=== PATIENT | male | born 1990 | race Caucasian/White ===

== ENCOUNTER → 2019-02-18 | Outpatient (CLI) | payer OTHER ==
--- NOTE | 2019-02-18 08:36 | CT ---
EXAMINATION TYPE: CT wrist LT wo con DATE OF EXAM: 02/18/2019 COMPARISON: None. HISTORY: Lt wrist fracture. CT DLP: 105.6 mGycm Automated exposure control for dose reduction was used. FINDINGS: Overlying cast material is present. There is acute minimally displaced oblique intra-articular fractu re through the ulnar styloid with 6 mm fracture fragment along the ulnar aspect. There is acute comminuted displaced intra-articular fracture through the distal radial metadiaphysis. There are multiple fracture fragments including anterior radial 1.1 cm fracture fragment along with a central 9 mm articulating surface fracture fragment and smaller dorsal and ulnar surface radial fra cture fragments. Carpal joint spaces are overall preserved. Overlying Soft tissue is unremarkable. IMPRESSION: Acute comminuted displaced intra-articular fracture distal radial meta-epiphysis as anne led above.
== END | disposition home or self-care (01) ==
LOC: RADCTMAIN 07:23
PROVIDERS: ATTEND Orthopaedic Surgery
DX: S52.572A Other intraarticular fracture of lower end of left radius, initial encounter for closed fracture (principal)

== ENCOUNTER 2019-02-21 11:17 | Day surgery (SDC) | payer OTHER ==
[2019-02-20 08:54] VITALS: BMI 27.8
[~2019-02-21 11:17] MED LIST: DEXAMETHASONE SOD PHOSPHATE 10 MG/ML 1 ML VIAL IV ONE; HYDROmorphone 0.5 MG/0.5 ML SYRINGE IVP PRN; LACTATED RINGERS 1,000 ML IV SCH; LIDOCAINE 1% 20 ML VIAL (10MG/ML) FOR IV START INTRADERMA PRN; MIDAZOLAM 2 MG/2 ML VIAL IV PRN; ONDANSETRON 4 MG/2 ML VIAL IVP ONE; fentaNYL (PF) 50 MCG/ML 2 ML AMP IVP PRN
[2019-02-21 11:40] VITALS: TEMP 98.2
[2019-02-21] MEDS ORDERED: MIDAZOLAM 2 MG/2 ML VIAL IV ONE (12:11)
[2019-02-21] MEDS ORDERED: fentaNYL (PF) 50 MCG/ML 2 ML AMP IV ONE (12:11)
--- NOTE | 2019-02-21 13:21 | P.ANPRN ---
Procedure Note - Anesthesia - Nerve Block Performed Left Infraclavicular Single Time Out Performed: Yes Date of Procedure: 02/21/19 Procedure Start Time: 12:10 Procedure Stop Time: 12:30 Location of Patient: PreOp Indication: Acute Post-Operative Pain, Requested by Surgeon Specifically requested for management of pain by DrKathy: Garry Sims Sedation Type: Sedate with meaningful contact maintained Preparation: Sterile Prep Position: Supine Catheter: None Needle Types: Pajunk Needle Gauge: 20 Ultrasound used to visualize needle placement: Yes Ultrasound used to observe medication spread: Yes Injectate: 0.5% Ropivacaine (see comment for volume) (30cc) Blood Aspirated: Yes Pain Paresthesia on Injection Noted: Yes Resistance on Injection: Normal Image Stored and Saved: Yes Events: Uneventful and Well Tolerated
[2019-02-21] MEDS ORDERED: MIDAZOLAM 2 MG/2 ML VIAL ONE (13:37)
[2019-02-21] MEDS ORDERED: fentaNYL (PF) 50 MCG/ML 2 ML AMP ONE (13:37)
[2019-02-21] MEDS ORDERED: PROPOFOL 10 MG/ML 20 ML VIAL IV ONE (13:37)
[2019-02-21] MEDS ORDERED: DEXAMETHASONE SOD PHOSPHATE 4 MG/ML 1 ML VIAL ONE (13:37)
[2019-02-21] MEDS ORDERED: ROPIVACAINE 5 MG/ML 30 ML VIAL ONE (13:37)
[2019-02-21] MEDS ORDERED: KETAMINE 10 MG/ML 20 ML VIAL ONE (13:37)
[2019-02-21] MEDS ORDERED: LIDOCAINE 1%-EPI 1:100,000 20 ML VIAL SQ ONE ×2 (14:08→14:47)
[2019-02-21] MEDS ORDERED: BUPIVACAINE (PF) 0.5% 30 ML VIAL SQ ONE ×2 (14:09→14:47)
--- NOTE | 2019-02-21 15:06 | FL ---
Fluoroscopy HISTORY: Fracture 1 minute 20 seconds fluoroscopy time supplied to the referring clinician. 6 intraoperative C-arm kallie ges document the procedure. See dictated report from .
--- NOTE | 2019-02-21 15:08 | XR ---
Limited wrist HISTORY: Fracture 6 intraoperative C-arm images document the procedure
[2019-02-21 15:25] VITALS: RESP 16
[2019-02-21 16:04] VITALS: BP 124/72; PULSE 73
--- NOTE | 2019-02-26 20:30 | P.OP ---
Date of Procedure: 02/21/19 Preoperative Diagnosis: Comminuted, intra-articular left distal radius fracture Postoperative Diagnosis: Comminuted, intra-articular left distal radius fracture Procedure(s) Performed: Closed reduction and percutaneous pinning of intra-articular left distal radius fracture (> 3 parts) Implants: 0.062 K wires (2), 0.054 K wire (1) Anesthesia: MAC, regional Surgeon: Garry Sims Estimated Blood Loss (ml): 1 Condition: stable Disposition: same day Indications for Procedure: The patient is a pleasant 29-year-old male who sustained an intra-articular fracture of his left distal radius after a fall from a ladder at work. Treatment options were discussed in the office and operative treatment was recommended. Risks and benefits were reviewed including (but not limited to) the risks of infection, bleeding, injury to tendons and neurovascular structures, malunion and possible need for additional surgery. He expressed understanding and wished to proceed with surgery. The procedure was initially scheduled earlier, but the patient opted to delay this until after [place]. In preop, the operative site was confirmed and marked. Consent forms were signed. Description of Procedure: The patient was administered a regional nerve block by the anesthesia team and then was brought to the operating suite. He was positioned supine with the operative limb on a hand table. Anesthesia and prophylactic IV antibiotics were administered. All bony prominences were well-padded. A tourniquet was placed on the left arm, which was then prepped and draped in standard, sterile fashion. A timeout was performed, confirming patient identifiers, the operative side, the site and the procedure to be performed: all team members were in agreement. The wrist was initially evaluated with intraoperative fluoroscopy. Radial height and inclination were well- maintained with nearly neutral volar tilt. There were no prominent articular incongruities. Passive flexion, extension and circumduction demonstrated a smooth articulation without crepitus. Dynamic examination with live fluoroscopy showed some motion of the fracture, particularly with axial load and flexion stress, but the fracture did not displace. Since the fracture was nearly 2 weeks out from the initial injury, the decision was made to forego formal open reduction in favor of percutaneous pin fixation. A 0.062 K wire was introduced percutaneous into the radial styloid, confirming the starting point on imaging. A combination of axial traction, radial deviation and palmar translation was applied to the fracture. While held in this position, the wire was advanced across the fracture site. A second wire was inserted in a similar fashion for additional stability. Preop CT scan demonstrated separate fragments of the volar and dorsal portions of radial column with a separate coronal sheer fragment of the sigmoid notch. A 0.054 K wire was introduced percutaneously into the radial styloid, slightly volar to midline, and advanced transversely to secure the volar fragment to the intermediate column/sigmoid notch fragment. Final x-rays were obtained. The wrist was then ranged under live fluoroscopy - no motion of the fracture fragments or fixation construct was appreciated. The wrist articulated smoothly in flexion, extension and rotation without crepitus or grinding. The pins were cut and covered with Jurgan balls. Sterile dressings were applied. The patient was placed in a long-arm sugartong plaster splint. All sponge, needle and instrument counts were correct at the end of the case. The patient tolerated the procedure well. He was awakened uneventfully and taken to the recovery room in stable condition.
== END 2019-02-21 16:01 | disposition home or self-care (01) ==
LOC: OR 11:17
PROVIDERS: ATTEND Orthopaedic Surgery
DX: S93.422A Sprain of deltoid ligament of left ankle, initial encounter (principal); S52.572A Other intraarticular fracture of lower end of left radius, initial encounter for closed fracture; S83.402A Sprain of unspecified collateral ligament of left knee, initial encounter; S52.612A Displaced fracture of left ulna styloid process, initial encounter for closed fracture; J45.909 Unspecified asthma, uncomplicated; Z79.51 Long term (current) use of inhaled steroids; Z88.6 Allergy status to analgesic agent; Z79.899 Other long term (current) drug therapy; Z79.1 Long term (current) use of non-steroidal anti-inflammatories (NSAID); W11.XXXA Fall on and from ladder, initial encounter; Y99.0 Civilian activity done for income or pay; Y92.69 Other specified industrial and construction area as the place of occurrence of the external cause
CPT/HCPCS: 25606; 64415; 76942; 73100; C1713; J2250; J1100 ×2; J0690; J2405; J3010; J2795; J2704

== ENCOUNTER → 2019-03-06 | Outpatient (CLI) | payer OTHER | END | disposition home or self-care (01) | LOC: LABWHC1 16:36 | PROVIDERS: ATTEND Orthopaedic Surgery | DX: M25.532 Pain in left wrist (principal); S52.572D Other intraarticular fracture of lower end of left radius, subsequent encounter for closed fracture with routine healing; S52.612D Displaced fracture of left ulna styloid process, subsequent encounter for closed fracture with routine healing; S93.402D Sprain of unspecified ligament of left ankle, subsequent encounter; M25.572 Pain in left ankle and joints of left foot; Z48.89 Encounter for other specified surgical aftercare | CPT/HCPCS: 36415; 82306 ==